=== PATIENT | female | born 1985 | race Caucasian/White ===

== ENCOUNTER 2024-03-09 15:12 | Outpatient (CLI) | payer OTHER | END 2024-03-09 15:13 | disposition home or self-care (01) | LOC: DI 15:12 | PROVIDERS: ATTEND Internal Medicine Cardiovascular Disease | DX: I49.1 Atrial premature depolarization (principal); I49.3 Ventricular premature depolarization; R00.2 Palpitations | CPT/HCPCS: 93307 ==